=== PATIENT | female | born 1945 | race American Indian/Alaskan Native ===

== ENCOUNTER 2016-10-05 20:20 | Emergency (ER) | payer MEDICARE ==
--- NOTE | 2016-10-05 20:58 | Cat Scan Report ---
FINAL REPORT PROCEDURE: CT HEAD/BRAIN WO CON TECHNIQUE: Computerized tomography of the head was performed without contrast material. HISTORY: Dizziness COMPARISON: No prior studies are available for comparison. FINDINGS: Skull and scalp: Normal. Paranasal sinuses: Normal. Ventricles and subarachnoid spaces: Are prominent appropriate for patient's age. Cerebrum: No evidence of hemorrhage, acute infarction or mass . Cerebellum and brainstem: No evidence of hemorrhage, acute infarction or mass. Comments: None. IMPRESSION: No acute intracranial abnormality. Cerebral atrophy appropriate for patient's age.
[2016-10-05 21:30] LABS: Basophils % (Auto) 0.3 % (0.0-1.8); Eosinophils % (Auto) 1.9 % (0.0-4.3); Hematocrit 42.8 % (30.3-42.9); Mean Corpuscular HGB Conc 33 % (30-34); Mean Corpuscular Hemoglobin 28 pg (28-32); Mean Corpuscular Volume 87 fl (79-97); Platelet Count 234 K/mm3 (140-440); Red Blood Count 4.94 M/mm3 (3.65-5.03); Red Cell Distribution Width 14.1 % (13.2-15.2); White Blood Count 9.5 K/mm3 (4.5-11.0)
[2016-10-05 21:55] LABS: Albumin/Globulin Ratio 1.4 %; Alkaline Phosphatase 92 units/L (35-129); Anion Gap 18 mmol/L; BUN/Creatinine Ratio 16.66; Bilirubin,Total 0.2 mg/dL (0.1-1.2); Blood Urea Nitrogen 15 mg/dL (7-17); Calcium 8.7 mg/dL (8.4-10.2); Carbon Dioxide 27 mmol/L (22-30); Chloride 99.3 mmol/L (98-107); Glucose 109 mg/dL (65-100); Sodium 141 mmol/L (137-145); Total Protein 6.9 g/dL (6.3-8.2)
[2016-10-05 22:17] LABS: Alanine Aminotransferase < 5 units/L (7-56)
[2016-10-05] MEDS ORDERED: K-DUR PO ONE (22:31)
--- NOTE | 2016-10-05 22:52 | Emergency Department Report ---
ED General Adult HPI - General Chief complaint: Dizziness Stated complaint: DIZZINESS Time Seen by Provider: 10/05/16 22:30 Source: patient, family, EMS (ems notes not available at time of chart dictation), RN notes reviewed, old records reviewed Mode of arrival: Stretcher Limitations: No Limitations - History of Present Illness Initial comments: Primary care Dr.: Dr. Justice Past medical history includes hypertension, COPD Patient is brought to the hospital by EMS complaining of dizziness. The patient describes a sensation of dizziness as "head shaking" and "shaking in my eyes." She states it lasted from 7:15 to approximately 8:00 PM. There is no pain. There is currently no chest pain or shortness of breath. There is no ataxia. There is no extremity weakness. There is no extremity numbness. The patient reports no dietary indiscretions, reports compliance with medications. She is not coughing, she has no irritative or obstructive urinary symptoms. There is no leg pain. There is no leg swelling. No recent trips greater than 4 hours. She reports that her vision was slightly blurry bilateral , but this is resolved. The patient specifically denies sensation of room spinning or herself spinning, and specifically denies sensation of passing out or almost passing out -: Gradual, minutes(s) Severity scale (0 -10): 0 Consistency: now resolved Improves with: none Worsens with: none Associated Symptoms: confusion (she reports that during the event she felt "out of sorts"). denies: chest pain, cough, diaphoresis, fever/chills, loss of appetite, malaise, nausea/vomiting, shortness of breath, syncope, weakness - Related Data Home Medications Medication Instructions Recorded Confirmed Last Taken Hydrochlorothiazide [Hctz] 25 mg PO QDAY 04/04/13 10/05/16 10/05/16 Ipratropium/Albuter (Nf) 2 puff IH QID 04/04/13 10/05/16 10/05/16 [Combivent Inhaler] Losartan [Cozaar] 25 mg PO QDAY 04/04/13 10/05/16 10/05/16 Lovastatin [Mevacor] 20 mg PO QPM 04/04/13 10/05/16 10/05/16 cloNIDine [Catapres] 0.2 mg PO QHS 04/04/13 10/05/16 10/05/16 Cyanocobalamin (Vitamin B-12) 2,500 mcg SL DAILY 10/05/16 10/05/16 10/05/16 [Vitamin B-12] Fluticasone/Vilanterol [Breo 1 each IH DAILY 10/05/16 10/05/16 10/05/16 Ellipta 100-25 Mcg INH] Lovastatin [Altoprev] 20 mg PO QPM 10/05/16 10/05/16 10/05/16 Potassium Chloride 8 meq PO QDAY 10/05/16 10/05/16 10/05/16 Triamter/Hctz 37.5-25 mg 1 tab PO QDAY 10/05/16 10/05/16 10/05/16 [Maxzide-25] amLODIPine [Norvasc] 10 mg PO DAILY 10/05/16 10/05/16 10/05/16 Allergies Allergy/AdvReac Type Severity Reaction Status Date / Time No Known Allergies Allergy Verified 05/08/13 09:51 ED Review of Systems ROS: Stated complaint: DIZZINESS Other details as noted in HPI Constitutional: denies: fever Eyes: denies: eye pain ENT: denies: congestion Respiratory: denies: cough Cardiovascular: denies: chest pain Gastrointestinal: denies: vomiting Genitourinary: as per HPI Musculoskeletal: as per HPI Skin: as per HPI Neurological: denies: weakness, numbness, paresthesias, confusion, abnormal gait , vertigo Psychiatric: as per HPI ED Past Medical Hx - Past Medical History Previous Medical History?: Yes Hx Hypertension: Yes Hx COPD: Yes - Surgical History Past Surgical History?: No - Social History Smoking Status: Never Smoker Substance Use Type: None - Medications Home Medications: Home Medications Medication Instructions Recorded Confirmed Last Taken Type Hydrochlorothiazide [Hctz] 25 mg PO QDAY 04/04/13 10/05/16 10/05/16 History Ipratropium/Albuter (Nf) 2 puff IH QID 04/04/13 10/05/16 10/05/16 History [Combivent Inhaler] Losartan [Cozaar] 25 mg PO QDAY 04/04/13 10/05/16 10/05/16 History Lovastatin [Mevacor] 20 mg PO QPM 04/04/13 10/05/16 10/05/16 History cloNIDine [Catapres] 0.2 mg PO QHS 04/04/13 10/05/16 10/05/16 History Cyanocobalamin (Vitamin B-12) 2,500 mcg SL DAILY 10/05/16 10/05/16 10/05/16 History [Vitamin B-12] Fluticasone/Vilanterol [Breo 1 each IH DAILY 10/05/16 10/05/16 10/05/16 History Ellipta 100-25 Mcg INH] Lovastatin [Altoprev] 20 mg PO QPM 10/05/16 10/05/16 10/05/16 History Potassium Chloride 8 meq PO QDAY 10/05/16 10/05/16 10/05/16 History Triamter/Hctz 37.5-25 mg 1 tab PO QDAY 10/05/16 10/05/16 10/05/16 History [Maxzide-25] amLODIPine [Norvasc] 10 mg PO DAILY 10/05/16 10/05/16 10/05/16 History ED Physical Exam - General Limitations: No Limitations General appearance: alert, in no apparent distress - Head Head exam: Present: atraumatic, normocephalic - Eye Eye exam: Present: normal appearance, PERRL, EOMI, other (visual acuity intact to finger counting, color perception, reading at a close distance). Absent: nystagmus - ENT ENT exam: Present: normal exam, normal orophraynx, mucous membranes moist, normal external ear exam - Neck Neck exam: Present: normal inspection, full ROM. Absent: tenderness, meningismus - Respiratory Respiratory exam: Present: normal lung sounds bilaterally. Absent: respiratory distress, wheezes, rales, rhonchi, stridor, chest wall tenderness, accessory muscle use, decreased breath sounds, prolonged expiratory - Cardiovascular Cardiovascular Exam: Present: regular rate, normal rhythm, normal heart sounds. Absent: bradycardia, tachycardia, irregular rhythm, systolic murmur, diastolic murmur, rubs, gallop - GI/Abdominal GI/Abdominal exam: Present: soft, normal bowel sounds. Absent: distended, tenderness, guarding, rebound, rigid, pulsatile mass - Extremities Exam Extremities exam: Present: normal inspection, full ROM, normal capillary refill. Absent: tenderness, pedal edema, joint swelling, calf tenderness - Back Exam Back exam: Present: normal inspection, full ROM. Absent: tenderness, CVA tenderness (R), CVA tenderness (L), muscle spasm, paraspinal tenderness, vertebral tenderness - Neurological Exam Neurological exam: Present: alert, oriented X3, normal gait (there is no pass pointing. Normal [id number]. Negative pronator drift. Negative Romberg examination. Normal gait. Normal tandem gait.), other (Extraocular movements intact. Tongue midline. No facial droop. Facial sensation intact to light touch in the V1, V2, V3 distribution bilaterally. 5 and 5 strength in 4 extremities.. Sensation is intact to light touch in 4 extremities.). Absent: motor sensory deficit - Psychiatric Psychiatric exam: Present: normal affect, normal mood - Skin Skin exam: Present: warm, dry, intact, normal color. Absent: rash ED Course Vital Signs 10/05/16 10/05/16 10/05/16 20:23 20:40 23:34 Temperature 98.0 F 97.9 F Pulse Rate 71 68 64 Respiratory 18 18 18 Rate Blood Pressure 173/76 Blood Pressure 130/74 139/63 [Right] O2 Sat by Pulse 95 98 95 Oximetry - Reevaluation(s) Reevaluation #1: 10/05/16 23:45 differential diagnosis: Orthostasis, a vagal event, electrolyte derangement, transient ischemic attack Assessment and plan: 70-year-old female with nonspecific dizziness which she describes as eye shaking and head shaking. She currently has a GCS of 15, with an NIH score of 0, and an absolutely normal and unremarkable neurologic examination. clinical features seem atypical for transient ischemic attack, and she is low risk by ABCD [address] scan of the brain is negative. She is found to be hypokalemic and this is ordered for repletion. A CT angiogram is ordered of the head and neck. The patient prefers to follow- up as an outpatient. I'm currently attempting to contact her primary care doctor to see if he feels comfortable to arrange outpatient follow-up. Of note, I have had an extensive discussion with the patient and family, I informed him that I think transient ischemic attack is unlikely, but they are specifically informed of the risks of CVA, including disability, paralysis, , loss of quality of life. Through shared decision making, we all agree that the patient is appropriate and suitable to follow-up as long as she closely follows up in her primary care doctor is amenable. 10/06/16 01:41 Reevaluation #2: 10/06/16 00:46-sized. Resting comfortably. Repeat neurologic examination unremarkable. Angiogram is performed. Case is discussed with covering physician for patient's primary care doctor, Dr. Valadez. He is agreeable to see the patient in 24-48 hours for outpatient follow-up. Reevaluation #3: 10/06/16 01:39 CT angiogram of the head and neck negative for significant disease. Patient reassessed. Repeat neurologic exam is unremarkable. Patient will be discharged at this time. She is given copies of her CT scan reports. She is instructed to follow-up with her primary care doctor or local neurology specialist within the next 24-48 hours. Return precautions or symptoms reviewed. ED Medical Decision Making - Lab Data Result diagrams: 10/05/16 21:07 10/05/16 21:07 Vital Signs 10/05/16 10/05/16 10/05/16 20:23 20:40 23:34 Temperature 98.0 F 97.9 F Pulse Rate 71 68 64 Respiratory 18 18 18 Rate Blood Pressure 173/76 Blood Pressure 130/74 139/63 [Right] O2 Sat by Pulse 95 98 95 Oximetry Lab Results 10/05/16 10/05/16 Range/Units 21:07 21:07 WBC 9.5 (4.5-11.0) K/mm3 RBC 4.94 (3.65-5.03) M/mm3 Hgb 14.0 (10.1-14.3) gm/dl Hct 42.8 (30.3-42.9) % MCV 87 (79-97) fl MCH 28 (28-32) pg MCHC 33 (30-34) % RDW 14.1 (13.2-15.2) % Plt Count 234 (140-440) K/mm3 Lymph % (Auto) 20.0 (13.4-35.0) % [place] % (Auto) 8.6 H (0.0-7.3) % Eos % (Auto) 1.9 (0.0-4.3) % Baso % (Auto) 0.3 (0.0-1.8) % Lymph # 1.9 (1.2-5.4) K/mm3 [place] # 0.8 (0.0-0.8) K/mm3 Eos # 0.2 (0.0-0.4) K/mm3 Baso # 0.0 (0.0-0.1) K/mm3 Seg Neutrophils % 69.2 (40.0-70.0) % Seg Neutrophils # 6.5 (1.8-7.7) K/mm3 Sodium 141 (137-145) mmol/L Potassium 3.0 L (3.6-5.0) mmol/L Chloride 99.3 (98-107) mmol/L Carbon Dioxide 27 (22-30) mmol/L Anion Gap 18 mmol/L BUN 15 (7-17) mg/dL Creatinine 0.9 (0.7-1.2) mg/dL Estimated GFR > 60 ml/min BUN/Creatinine Ratio 16.66 % Glucose 109 H (65-100) mg/dL Calcium 8.7 (8.4-10.2) mg/dL Total Bilirubin 0.2 (0.1-1.2) mg/dL AST 13 (5-40) units/L ALT < 5 L (7-56) units/L Alkaline Phosphatase 92 (35-129) units/L Total Protein 6.9 (6.3-8.2) g/dL Albumin 4.0 (3.9-5) g/dL Albumin/Globulin Ratio 1.4 % - EKG Data EKG shows normal: sinus rhythm Rate: normal - EKG Data When compared to previous EKG there are: previous EKG unavailable 10/05/16 23:48 ekg shows normal sinus, 67 bpm, normal interval normal axis, poor r wave progression, not c/w stemi - Radiology Data Radiology results: pending, report reviewed, image reviewed Critical care attestation.: If time is entered above; I have spent that time in minutes in the direct care of this critically ill patient, excluding procedure time. ED Disposition Clinical Impression: Dizzy Disposition: DISCHARGED TO HOME OR SELFCARE Is pt being admited?: No Does the pt Need Aspirin: No Condition: Stable Instructions: Transient Ischemic Attack (ED) Additional Instructions: Continue current outpatient medications. Follow-up within the next 24-48 hours with her primary care doctor (call the office first thing in the morning, informed them that I have spoken to Dr. Valadez, he would like to see her in the office as a follow-up) or contact any of the local listed neurology specialist arrange follow-up. Return to the ER right away with fevers or chills , chest pain or shortness of breath, extremity weakness, extremity numbness, bladder or bowel retention or incontinence. Please note that the CAT scan demonstrated nonspecific abnormalities the thyroid gland. This followed up by her primary care doctor. Referrals: PRIMARY CARE, [Primary Care Provider] - 3-5 Days KIRTI VALADEZ MD [Staff Physician] - 3-5 Days HIRA EHSS MD [Staff Physician] - 3-5 Days RASHARD MCDONNELL MD [Staff Physician] - 3-5 Days ADELINA LOPEZ MD [Staff Physician] - 3-5 Days
[2016-10-05 23:34] VITALS: BP 139/63
[2016-10-05] MEDS ORDERED: NACL 0.9% 1000 ML 1,000 ML ONE (23:53)
[2016-10-05 23:56] LABS: INR 0.87 (0.87-1.13)
[2016-10-06 00:15] LABS: Bilirubin,Urine NEG (Negative); Blood,Urine NEG (Negative); Ketones,Urine NEG (Negative); Leukocyte Esterase,Urine NEG (Negative); Nitrite,Urine NEG (Negative); Protein,Urine <15 mg/dL mg/dL (Negative); Urobilinogen,Urine < 2.0 mg/dL (<2.0)
--- NOTE | 2016-10-06 01:17 | Cat Scan Report ---
FINAL REPORT EXAM: CT ANGIO HEAD HISTORY: dizzy visual fluctuation now reolved TECHNIQUE: CT angiography of the head and neck with intravenous contrast. Axial thin-section images with sagittal and coronal reconstructions. 3D renderings also obtained. PRIORS: FINDINGS: Head: The sauer/white matter attenuation pattern is normal. There is no mass lesion or mass effect. There are no abnormal extra-axial fluid collections. There is no evidence of acute intracranial hemorrhage or infarct. The ventricles are of normal size and configuration. The skull base and visualized orbits appear normal. The visualized paranasal sinuses are clear. There are no areas of abnormal enhancement. There is mild right and moderate left atherosclerotic calcification in the supraclinoid internal carotid arteries. There is no significant ICA stenosis. The bilateral anterior and middle cerebral arteries and the [place] of [place] appear normal. The vertebrobasilar appears normal. The bilateral posterior cerebral arteries appear normal. No aneurysms or significant stenoses are demonstrated. Neck: There is a aberrant right subclavian artery, a normal variation. The right common carotid arises directly from the aortic arch. The upper mediastinum appears normal. The lung apices are clear. The jugular veins are patent. Right: The common carotid artery and carotid bulb appear normal. The internal carotid artery is without stenosis. The external carotid artery and branches are within normal limits. The right vertebral artery is diminutive but otherwise patent and appears normal. Left: The common carotid artery and carotid bulb appear normal. There is mild calcification in the proximal cervical ICA. The internal carotid artery is without stenosis. The external carotid artery and branches are within normal limits. The left vertebral artery is patent and appears normal. Soft tissues: The pharynx and para-pharyngeal soft tissues appear normal. The parotid and submandibular glands appear normal. There are multiple small nodules in the thyroid. No abnormal soft tissue masses are demonstrated. Bones: The bones appear normal. IMPRESSION: 1. No significant ICA or intracranial stenosis or occlusion. 2. Incidental aberrant right subclavian artery, normal variation. 3. Multiple small thyroid nodules. Follow-up with ultrasound is recommended.
--- NOTE | 2016-10-06 01:21 | Cat Scan Report ---
FINAL REPORT EXAM: CT ANGIO NECK HISTORY: dizzy visual fluctuation now reolved TECHNIQUE: CT angiography of the head and neck with intravenous contrast. Axial thin-section images with sagittal and coronal reconstructions. 3D renderings also obtained. PRIORS: CT of the head from 10/05/2016 FINDINGS: Head: The sauer/white matter attenuation pattern is normal. There is no mass lesion or mass effect. There are no abnormal extra-axial fluid collections. There is no evidence of acute intracranial hemorrhage or infarct. The ventricles are of normal size and configuration. The skull base and visualized orbits appear normal. The visualized paranasal sinuses are clear. There are no areas of abnormal enhancement. There is mild right and moderate left atherosclerotic calcification in the supraclinoid internal carotid arteries. There is no significant ICA stenosis. The bilateral anterior and middle cerebral arteries and the [place] of [place] appear normal. The vertebrobasilar appears normal. The bilateral posterior cerebral arteries appear normal. No aneurysms or significant stenoses are demonstrated. Neck: There is a aberrant right subclavian artery, a normal variation. The right common carotid arises directly from the aortic arch. The upper mediastinum appears normal. The lung apices are clear. The jugular veins are patent. Right: The common carotid artery and carotid bulb appear normal. The internal carotid artery is without stenosis. The external carotid artery and branches are within normal limits. The right vertebral artery is diminutive but otherwise patent and appears normal. Left: The common carotid artery and carotid bulb appear normal. There is mild calcification in the proximal cervical ICA. The internal carotid artery is without stenosis. The external carotid artery and branches are within normal limits. The left vertebral artery is patent and appears normal. Soft tissues: The pharynx and para-pharyngeal soft tissues appear normal. The parotid and submandibular glands appear normal. There are multiple small nodules in the thyroid. No abnormal soft tissue masses are demonstrated. Bones: There is degenerative disc disease at C4-5. IMPRESSION: 1. No significant ICA or intracranial stenosis or occlusion. 2. Incidental aberrant right subclavian artery, normal variation. 3. Multiple small thyroid nodules. Follow-up with ultrasound is recommended.
--- NOTE | 2016-10-06 08:10 | XRay Report ---
ROUTINE CHEST, TWO VIEWS: HISTORY: Dizziness, syncope, chest pain. The trachea, heart, mediastinal contour, lung [place] and bony thorax are unremarkable. IMPRESSION: Unremarkable chest x-ray.
== END 2016-10-06 02:06 | disposition home or self-care (01) ==
LOC: ED 20:20
DX: R42 Dizziness and giddiness (principal); I10 Essential (primary) hypertension; J44.9 Chronic obstructive pulmonary disease, unspecified
CPT/HCPCS: 36415; 70450; 70496; 70498; 71020; 80053; 81001; 83735; 85025; 85610; 93005; 93010; 99285; Q9967; J7030

== ENCOUNTER 2020-04-19 16:59 | Emergency (ER) | payer MEDICARE ==
--- NOTE | 2020-04-19 17:28 | Event Note ---
ED Screening Note Date of service: 04/19/20 Time: 17:27 ED Screening Note: Patient complains of diffuse generalized pain due to arthritis and rectal pain Fever of 101.5 noted Denies chest pain, shortness of breath, or cough This initial assessment/diagnostic orders/clinical plan/treatment(s) is/are subject to change based on patients health status, clinical progression and re- assessment by fellow clinical providers in the ED. Further treatment and workup at subsequent clinical providers discretion. Patient/guardian urged not to elope from the ED as their condition may be serious if not clinically assessed and managed. Initial orders include: Labs
[2020-04-19] MEDS ORDERED: ACETAMINOPHEN 325 MG TAB ONE (17:33)
[2020-04-19 18:15] LABS: Albumin 3.1 g/dL (3.9-5); BUN/Creatinine Ratio 30; Blood Urea Nitrogen 27 mg/dL (7-17); Calcium 9.3 mg/dL (8.4-10.2); Hemolysis Index 29
[2020-04-19 18:17] LABS: Hemoglobin 12.3 gm/dl (10.1-14.3); Mean Corpuscular HGB Conc 32 % (30-34); Mean Corpuscular Volume 88 fl (79-97); Platelet Count 457 K/mm3 (140-440); Red Blood Count 4.31 M/mm3 (3.65-5.03); Red Cell Distribution Width 14.8 % (13.2-15.2)
[2020-04-19 18:19] LABS: Alanine Aminotransferase < 5 units/L (7-56)
[2020-04-19 19:08] LABS: Basophils % (Manual) 0 % (0.0-1.8); Eosinophils % (Manual) 0 % (0.0-4.3); RBC Morphology Normal; Total Cells Counted 100
[2020-04-19] MEDS ORDERED: ACETAMINOPHEN 325 MG TAB PO ONE (20:16)
[2020-04-19] MEDS ORDERED: ONDANSETRON 4 MG/2 ML INJ IV ONE (21:21)
[2020-04-19] MEDS ORDERED: ACETAMINOPHEN 500 MG TAB PO ONE (21:21)
[2020-04-19] MEDS ORDERED: MORPHINE 4 MG/1 ML INJ IV ONE ×2 (21:21→23:39)
--- NOTE | 2020-04-19 21:45 | Emergency Department Report ---
ED Back Pain/Injury HPI - General Chief Complaint: Pain General Stated Complaint: NERVE PAINS Time Seen by Provider: 04/19/20 17:26 Source: patient Limitations: No Limitations - History of Present Illness Initial Comments: CC: "I have horrible pain." HPI: This is a 74-year-old female with history of hypertension and tobacco dependence who presents with severe lower back pain and leg weakness for the past 5 days. Patient underwent ZIP spinal procedure in [place] 3 weeks ago. She was able to walk after the procedure. She did have wound infection as a complication. Over the past 5 days she has been unable to walk. She is unable to lift her legs. She has severe pain in her lower back. She only had mild pain in the immediate postoperative period. She underwent the procedure which is a minimally invasive interspinous fixation implant for spinal fusion's spine surgery because she stated that L3-L5 were "crushed". MD Complaint: back pain -: Gradual, days(s) (5) Similar Symptoms Previously: No Place: other (3 weeks status post spine surgery) Severity: severe Severity scale (0 -10): 10 Consistency: constant Improves With: none Worsens With: movement Context: other (Recent spine surgery) Associated Symptoms: weakness - Related Data Home Medications Medication Instructions Recorded Confirmed Last Taken Ipratropium/Albuter (Nf) 2 puff IH QID 04/04/13 06/29/17 06/29/17 [Combivent Inhaler] Cyanocobalamin (Vitamin B-12) 2,500 mcg SL DAILY 10/05/16 06/29/17 06/29/17 [Vitamin B-12] Fluticasone/Vilanterol [Breo 1 each IH DAILY 10/05/16 06/29/17 06/29/17 Ellipta 100-25 Mcg INH] Triamter/Hctz 37.5-25 mg 1 tab PO QDAY 10/05/16 06/29/17 06/29/17 [Maxzide-25] amLODIPine 10 mg PO DAILY 10/05/16 06/29/17 06/29/17 Albuterol Sulfate [Ventolin HFA] 2 puff IH Q4H PRN 06/29/17 06/29/17 06/29/17 Aspirin [Lo-Dose Aspirin EC] 81 mg PO DAILY 06/29/17 06/29/17 06/29/17 Previous Rx's Medication Instructions Recorded Last Taken Type Losartan [Cozaar] 25 mg PO QDAY #30 tablet 07/01/17 Unknown Rx Nicotine [Habitrol] 21 mg TD DAILY #30 patch 07/01/17 Unknown Rx guaiFENesin DM [Guaifenesin Dm 10 ml PO TID PRN 10 Days oral.liqd 07/01/17 Unknown Rx Syrup] levoFLOXacin [Levaquin TAB] 750 mg PO Q24H #4 tablet 07/01/17 Unknown Rx predniSONE [Deltasone] 10 mg PO QDAY #52 tab 07/01/17 Unknown Rx Allergies Allergy/AdvReac Type Severity Reaction Status Date / Time No Known Allergies Allergy Verified 05/08/13 09:51 ED Review of Systems ROS: Stated complaint: NERVE PAINS Other details as noted in HPI Comment: All other systems reviewed and negative Constitutional: fever. denies: chills, malaise Respiratory: denies: cough, shortness of breath Cardiovascular: denies: chest pain Gastrointestinal: denies: abdominal pain, nausea, vomiting Musculoskeletal: back pain Neurological: weakness ED Past Medical Hx - Past Medical History Previous Medical History?: Yes Hx Hypertension: Yes Hx COPD: Yes - Social History Smoking Status: Current Every Day Smoker - Medications Home Medications: Home Medications Medication Instructions Recorded Confirmed Last Taken Type Ipratropium/Albuter (Nf) 2 puff IH QID 04/04/13 06/29/17 06/29/17 History [Combivent Inhaler] Cyanocobalamin (Vitamin B-12) 2,500 mcg SL DAILY 10/05/16 06/29/17 06/29/17 History [Vitamin B-12] Fluticasone/Vilanterol [Breo 1 each IH DAILY 10/05/16 06/29/17 06/29/17 History Ellipta 100-25 Mcg INH] Triamter/Hctz 37.5-25 mg 1 tab PO QDAY 10/05/16 06/29/17 06/29/17 History [Maxzide-25] amLODIPine 10 mg PO DAILY 10/05/16 06/29/17 06/29/17 History Albuterol Sulfate [Ventolin HFA] 2 puff IH Q4H PRN 06/29/17 06/29/17 06/29/17 H istory Aspirin [Lo-Dose Aspirin EC] 81 mg PO DAILY 06/29/17 06/29/17 06/29/17 History Losartan [Cozaar] 25 mg PO QDAY #30 tablet 07/01/17 Unknown Rx Nicotine [Habitrol] 21 mg TD DAILY #30 patch 07/01/17 Unknown Rx guaiFENesin DM [Guaifenesin Dm 10 ml PO TID PRN 10 Days oral.liqd 07/01/17 Unknown Rx Syrup] levoFLOXacin [Levaquin TAB] 750 mg PO Q24H #4 tablet 07/01/17 Unknown Rx predniSONE [Deltasone] 10 mg PO QDAY #52 tab 07/01/17 Unknown Rx ED Physical Exam - General Limitations: No Limitations General appearance: alert, in no apparent distress, other (Appears uncomfortable, unable to change position without assistance) - Head Head exam: Present: atraumatic, normocephalic - Eye Eye exam: Present: normal appearance - ENT ENT exam: Present: mucous membranes moist - Neck Neck exam: Present: normal inspection, full ROM - Respiratory Respiratory exam: Present: normal lung sounds bilaterally. Absent: respiratory distress, wheezes, rales, rhonchi - Cardiovascular Cardiovascular Exam: Present: regular rate, normal rhythm, normal heart sounds. Absent: systolic murmur, diastolic murmur, rubs, gallop - GI/Abdominal GI/Abdominal exam: Present: soft, normal bowel sounds. Absent: distended, tenderness, guarding, rebound - Extremities Exam Extremities exam: Present: other (On exam patient is unable to fully flex hip on either leg. ) - Neurological Exam Neurological exam: Present: alert, oriented X3 - Expanded Neurological Exam Expanded Motor strength exam: RUE: 5, LUE: 5, RLE: 3, LLE: 3 - Psychiatric Psychiatric exam: Present: normal affect, normal mood - Skin Skin exam: Present: other (Back: 7 cm vertical surgical incision lumbar region with wound dehiscence purulent drainage,) ED Course Vital Signs 04/19/20 04/19/20 04/19/20 17:26 21:55 22:00 Temperature 101.3 F H Pulse Rate 96 H 109 H 90 Respiratory 15 14 16 Rate Blood Pressure 129/41 Blood Pressure 130/59 [Right] O2 Sat by Pulse 98 91 Oximetry ED Medical Decision Making - Lab Data Result diagrams: 04/19/20 17:36 11/06/20 17:36 - Medical Decision Making This is a 74-year-old female history of tobacco dependence and hypertension who presents 3 weeks after spine surgery with fever, acute leg weakness wound dehiscence, purulent drainage. With concern for epidural abscess, I immediately spoke with [facility] transfer center nurse in order to obtain spine surgeon consultation. Dr. Malik Go, spine surgeon, discussed case with me. His facilty requires COVID testing prior to acceptance of patient to [facility]. I spoke with neurosurgeon Dr. Ramsay at [facility] who accepted patient. I spoke with [facility] ED physician Dr. Urrutia who accepted patient ED to ED transfer Critical Care Time: Yes Critical care time in (mins) excluding proc time.: 40 Critical care attestation.: If time is entered above; I have spent that time in minutes in the direct care of this critically ill patient, excluding procedure time. 40 minutes of critical care time excluding procedures were used in the care of the patient. I came immediately to the bedside upon patient's arrival. I discussed treatment plan with the nursing team members. I reviewed electronic record. I kept the family member informed. Patient required multiple interventions and reassessments. I spoke with several consultants including spinal surgeon at [facility] as well as neurosurgery physician at [facility]. I also spoke with transfer center nursesat both [facility] and [facility]. ED Disposition Clinical Impression: Postoperative fever, Epidural abscess, Wound dehiscence, surgical, Wound infection Disposition: [id number] ANOTHER TYPE HLTHCARE Is pt being admited?: No Does the pt Need Aspirin: No Condition: Fair Referrals: PRIMARY CARE, [Primary Care Provider] - 3-5 Days
[2020-04-19] MEDS ORDERED: SODIUM CHLORIDE 0.9% 1000 ML 1,000 ML IV ONE (23:39)
[2020-04-19] MEDS ORDERED: CLINDAMYCIN 600 MG/50 mL 600 MG/50 ML BAG IV SCH (23:45)
[2020-04-20 00:21] VITALS: BP 109/52
== END 2020-04-20 02:40 | disposition other institution (70) ==
LOC: ED 16:59
DX: T81.31XA Disruption of external operation (surgical) wound, not elsewhere classified, initial encounter (principal); G06.2 Extradural and subdural abscess, unspecified; R50.82 Postprocedural fever; I10 Essential (primary) hypertension; J44.9 Chronic obstructive pulmonary disease, unspecified; F17.200 Nicotine dependence, unspecified, uncomplicated; Z79.899 Other long term (current) drug therapy; Y92.89 Other specified places as the place of occurrence of the external cause
CPT/HCPCS: 36415; 80053; 82140; 85007; 85025; 87040; 96365; 96375; 96376; 99285; J2270; J2405; J7030